=== PATIENT | male | born 1950 | race Caucasian/White ===

== ENCOUNTER 2017-03-16 06:59 | Day surgery (SDC) | payer MEDICARE, OTHER ==
[2017-03-15 10:45] LABS: HEMOGLOBIN 14.1 g/dL (13.6-17.8)
[2017-03-15 10:59] LABS: CALCIUM, SERUM 9.5 MG/DL (8.5-10.4); CHLORIDE, SERUM 103 MMOL/L (96-112); CO2 (CARBON DIOXIDE) 28 MMOL/L (24-34); CREATININE 1.11 MG/DL (0.70-1.30); GFR AFRICAN AMERICAN 80 ML/MIN (>=60); GFR NON AFRICAN AMERICAN 69 ML/MIN (>=60); SODIUM, SERUM 137 MMOL/L (135-148)
[2017-03-15 11:00] LABS: BUN (BLOOD UREA NITROGEN) 13 MG/DL (6-23); GLUCOSE, SERUM 101 MG/DL (60-99)
--- NOTE | ~2017-03-16 | OP ---
Record Of Operation [facility] [address] [place]. [address] NAME: AMINTA BETH : 52 STATUS : REG [facility]#: [id number] AGE: 66 ADM/REG DATE : 03/16/17 MR#: [id number] REPORT SERV DATE: 03/16/17 DICTATED BY: CHU SCHWARTZ JR. DATE: 03/16/17 REPORT STATUS : Draft TRANSCRIBED BY: MODMaycol DATE: 03/16/17 DATE OF PROCEDURE: 03/16/2017 PREOPERATIVE DIAGNOSIS: Clot retention. POSTOPERATIVE DIAGNOSIS: Fossa navicularis stricture. PROCEDURE PERFORMED: Cystoscopy. Jason urethrotomy. COMPLICATIONS: None. CONSULTATIONS: None. ANESTHESIA: General with laryngeal mask airway. SPECIMENS: None. DRAINS: A 20-Belgian Grady catheter. ESTIMATED BLOOD LOSS: None. INDICATION: Mr. Beth is a 66-year-old gentleman, who underwent TURP 2 weeks ago. Since that time, he has had continued gross hematuria with frequency and urgency. In the office, it was felt that he was in clot retention and comes today for clot evacuation and fulguration of possible bleeding. PROCEDURE IN DETAIL: After the patient was identified and proper informed consent was obtained, he was taken to the operating room. General anesthesia was performed without complication using a laryngeal mask airway. He was then prepped and draped in a normal sterile fashion in the lithotomy position. I was unable to perform rigid cystoscopy with a 20-Belgian cystoscope due to a fossa navicularis stricture. This was incised using an Jason urethrotome to 24-Belgian. I then performed cystoscopy without difficulties down to the level of the prostatic urethra. The prostatic fossa was well resected and there was no active bleeding. He did not have any clots in his bladder today and his urine was relatively clear. There were no injuries to the bladder mucosa. The ureteral orifices were in good position and appeared normal with clear efflux of urine from each side. Overall a normal cystoscopy after TURP except for the fossa navicularis stricture. I then removed the cystoscope and placed a 20-Belgian Grady catheter, 10 mL of sterile water in the balloon. The patient was awakened in the operating room and transferred to the postanesthesia care unit in stable condition. We will have his Grady taken out on Sunday in the office and I will see him back in two weeks for followup. I did give him a prescription for oxybutynin for bladder spasms. [place] Of [place] [address] [place]. [address] NAME: AMINTA BETH : 52 STATUS : REG [facility] PAT#: [id number] AGE: 66 ADM/REG DATE : 03/16/17 MR#: [id number] REPORT SERV DATE: 03/16/17 DICTATED BY: CHU SCHWARTZ JR. DATE: 03/16/17 REPORT STATUS : Draft TRANSCRIBED BY: JENNA DATE: 03/16/17 Chu Schwartz Jr., M.D. / [id number] CC: Chu Schwartz Jr., M.D.
[~2017-03-16 06:59] MED LIST: ADVIL PO; AVINZA60 PO; BEN25 PO; BETHAN25B PO; CYMBALTA30 PO; FENTANYL PUMP; FISH-EPA1000 MG PO; FLEX PO; FLOMAX4 PO; GLUCPH PO; HALF81 PO; LIOR10 PO; LOFIBRA134 MG PO; LOTE10 PO; MACRO50B PO; MEPERITAB50 MG PO; MSCONT100 PO; MULTIPLE VIT PO; NEUR600 PO; NORCO1 TA2 PO; PAIN PUMP IT; PCET PO; PEP20 PO; PEPCID AC PO; PHENADOZ25 MG RE; PR25 PO; ROXICODONE15 MG PO; ROXICODONE30 MG PO; SEROQUEL1C PO; TRICOR145 PO; VALIUM10 MG PO; XANAX1 MG PO; ZANTAC150 MG PO; ZOCOR40 PO; ZOFRAN4 PO; ZOL100 PO
== END 2017-03-16 18:23 | disposition home or self-care (01) ==
LOC: SDC 06:59
PROVIDERS: Urology
PROC: 0TND8ZZ Release Urethra, Via Natural or Artificial Opening Endoscopic (ICD-10-PCS; principal; 2017-03-16 09:00)
DX: N35.9 Urethral stricture, unspecified (principal); I10 Essential (primary) hypertension; K21.9 Gastro-esophageal reflux disease without esophagitis; E11.40 Type 2 diabetes mellitus with diabetic neuropathy, unspecified; E78.00 Pure hypercholesterolemia, unspecified; K58.9 Irritable bowel syndrome, unspecified; Z79.891 Long term (current) use of opiate analgesic; Z79.899 Other long term (current) drug therapy; Z90.89 Acquired absence of other organs; Z96.653 Presence of artificial knee joint, bilateral; Z98.890 Other specified postprocedural states; Z90.49 Acquired absence of other specified parts of digestive tract
CPT/HCPCS: 80048; 82962; 85014; 85018; 93005; J1170; J2250; J2370; J2405; J3010